=== PATIENT | female | born 1960 | race Caucasian/White ===

== ENCOUNTER → 2024-12-19 | Day surgery (SDC) | payer OTHER ==
[2024-12-12 13:28] LABS: RED CELL DISTRIBUTION WIDTH 11.8 % (11.7-14.4)
[2024-12-12 13:29] LABS: BASOPHILS % 0.4 % (0.0-1.0); EOSINOPHILS % 1.4 % (0.0-6.0); LYMPHOCYTES % 38.5 % (18.0-39.1); MONOCYTES % 13.4 % (4.4-11.3); NEUTROPHILS % 46.1 % (38.7-80.0)
[2024-12-12 13:56] LABS: EST GLOMERULAR FILTRATION RATE 85.0 ML/MIN (>=60)
[~2024-12-19] MED LIST: ACETAMINOPHEN 1000 MG/100 ML 100 ML IV ONE; BIOTIN1 MG; D3-5000125 MCG; DEXAMETHASONE SOD PHOS INJ 4 MG/ML SDV ONE; ESTRADIOL1 MG PO; FAMOTIDINE 20 MG/2 ML VIAL IV ONE; FENTANYL CITRATE/PF 100MCG/2 ML INJ ONE; LIDOCAINE HCL 2% LOCAL INJ 5 ML SDV VIAL INJ ONE; ONDANSETRON HCL INJ 2MG/ML 2ML 2 MG/ML VIAL ONE; PROBIOTIC & AC1 EACH PO; PROPOFOL IV EMULSION 10 MG/ML 20 ML VIAL ONE; SEVOFLURANE INHAL SOLN 250 ML PEN BTL ONE; SODIUM CHLORIDE 0.9% 250ML 250 ML ONE; Vancomycin IV 1 GM VIAL ONE
[2024-12-19] MEDS: LACTATED RINGER'S 1,000 ML ONE (07:45)
[2024-12-19 11:15] VITALS: BP 139/80; PULSE 60; RESP 16; O2SAT 98
== END | disposition home or self-care (01) ==
LOC: OR 07:12
PROVIDERS: ATTEND Orthopaedic Surgery
DX: S83.271A Complex tear of lateral meniscus, current injury, right knee, initial encounter (principal); S83.241A Other tear of medial meniscus, current injury, right knee, initial encounter; M94.261 Chondromalacia, right knee; M65.161 Other infective (teno)synovitis, right knee; X58.XXXA Exposure to other specified factors, initial encounter; Z01.810 Encounter for preprocedural cardiovascular examination; Z01.812 Encounter for preprocedural laboratory examination; Z91.040 Latex allergy status; Z79.1 Long term (current) use of non-steroidal anti-inflammatories (NSAID)
CPT/HCPCS: 29880; 36415; 80053; 85025; 93005; J0131; J1100; J1308; J2003; J2405; J2704; J3010; J3373; J7050; J7121